=== PATIENT | female | born 1995 ===

== ENCOUNTER 2022-05-09 23:26 | Emergency (ER) | payer BC ==
[2022-05-09 23:42] VITALS: BP 150/97
[2022-05-10 00:25] LABS: Basophils % (Auto) 0.3 % (0.0-1.8); Eosinophils # (Auto) 0.1 K/mm3 (0.0-0.4); Eosinophils % (Auto) 0.8 % (0.0-4.3); Hematocrit 33.2 % (30.3-42.9); Hemoglobin 11.5 gm/dl (10.1-14.3); Lymphocytes # (Auto) 2.3 K/mm3 (1.2-5.4); Lymphocytes % (Auto) 21.9 % (13.4-35.0); Mean Corpuscular HGB Conc 35 % (30-34); Mean Corpuscular Volume 81 fl (79-97); Monocytes # (Auto) 0.9 K/mm3 (0.0-0.8); Monocytes % (Auto) 8.7 % (0.0-7.3); Platelet Count 262 K/mm3 (140-440); Red Blood Count 4.08 M/mm3 (3.65-5.03); Red Cell Distribution Width 16.9 % (13.2-15.2)
[2022-05-10 01:28] LABS: Color,Urine Yellow (Yellow)
[2022-05-10 01:29] LABS: Bilirubin,Urine Negative (Negative); Blood,Urine Moderate (Negative); Urobilinogen,Urine 0.2 mg/dL (<2.0)
[2022-05-10 01:37] LABS: Mucus,Urine FEW /HPF
== END 2022-05-10 09:08 | disposition left against medical advice (07) ==
LOC: ED 23:26
DX: O26.892 Other specified pregnancy related conditions, second trimester (principal); T17.990A Other foreign object in respiratory tract, part unspecified in causing asphyxiation, initial encounter; Z53.21 Procedure and treatment not carried out due to patient leaving prior to being seen by health care provider; Z3A.26 26 weeks gestation of pregnancy; Z3A.17 17 weeks gestation of pregnancy
CPT/HCPCS: 36415; 81001; 84702; 84703; 85025; 86900; 86901